=== PATIENT | male | born 1970 | race African-American/Black ===

== ENCOUNTER 2017-06-06 05:45 | Emergency (ER) | payer BC, OTHER ==
[2017-06-06] MEDS ORDERED: DEXAMETHASONE SOD PHOS 4 MG/ML VIAL IM ONE (06:09)
[2017-06-06] MEDS ORDERED: CEPHALEXIN 250 MG CAPSULE PO ONE (06:09)
--- NOTE | 2017-06-06 06:25 | ED Physician Documentation ---
General Adult - HISTORIAN Historian: patient - HPI Stated Complaint: swelling left lip and cheek Chief Complaint: General Adult Additional Information: Ate cereal, strawberries and bananas last evening and lower lip began to swell. orse this am with involvement of only left face, so came to ER. No pain involved. No toothache. No meds. No SOB. - ROS CONST: no problems - PAST HX Past History: none Allergies/Adverse Reactions: Allergies Allergy/AdvReac Type Severity Reaction Status Date / Time No Known Allergies Allergy Verified 06/06/17 06:03 Home Medications: Ambulatory Orders Medication Instructions Recorded Cephalexin [Keflex] 500 mg PO Q6 40 Days capsule 06/06/17 - SOCIAL HX Smoking History: non-smoker - FAMILY HX Family History: No - VITAL SIGNS Vital Signs: Vital Signs Temp Pulse Resp BP Pulse Ox 200/88 03/06/15 00:16 - REVIEWED ASSESSMENTS Nursing Assessment Reviewed: Yes Vitals Reviewed: Yes ED Results Lab/Radiology - Orders Orders: ED Orders Category Date Time Status Cephalexin [Keflex] Med 06/06/17 06:09 Once 500 mg PO NOW ONE Dexamethasone Sod Phosphate [Decadron] Med 06/06/17 06:09 Once 12 mg IM NOW ONE General Adult Physical Exam - PHYSICAL EXAM GENERAL APPEARANCE: mild distress EENT: eye inspection normal, ENT inspection normal (no aparent cavities, broken teeth or gingival swelling, erythema), pharynx normal (Mallampati 2), other ( Left lower lip swollen as well as left facial area adjacent to lip. The swelling is well demarcated and does not involve the pre auricular area, the tongue or the sub glossal area. There is no warmth or rash.) NECK: normal inspection RESPIRATORY: no resp distress BACK: other (erect posture) SKIN: warm/dry, normal color EXTREMITIES: normal range of motion (gait and stance), no evidence of injury NEURO: CN's nml as tested, motor nml, sensation nml, cognition normal Discharge Clincal Impression: Left facial swelling Prescriptions: Cephalexin [Keflex] 500 mg PO Q6 40 Days capsule Referrals: Kristy Scott, PRN [Primary Care Provider] - 2 Days Condition: Good Disposition: 01 HOME, SELF-CARE Decision to Admit: NO Decision Time: 06:25
[2017-06-06 06:39] VITALS: BP 170/98
== END 2017-06-06 06:26 | disposition home or self-care (01) ==
LOC: ED 05:45
DX: R22.0 Localized swelling, mass and lump, head (principal)
CPT/HCPCS: 96372; 99282; J1100

== ENCOUNTER 2018-01-14 11:19 | Outpatient (CLI) | payer BC ==
--- NOTE | 2018-01-14 13:37 | Diagnostic Imaging Report ---
BLADIMIR KILGORE [facility] [address] [address] [id number] Report Submission Date: Jan 14, 2018 12:47:43 PM CDT Patient Study Name: POLO AGUIRRE Date: Jan 14, 2018 11:26:36 AM CDT Modality Type: DX Gender: M Description: CHEST : 72 Institution: [facility] Physician: BLADIMIR KILGORE Examination: PA and lateral chest. History: Evaluate lung pickard. Findings: PA and lateral views of the chest demonstrates a normal cardiac and mediastinal silhouette. No focal infiltrate. No blunting of the costophrenic margins. Osseous structures are appropriate for age. Impression: No acute pulmonary process. Electronically signed on Jan 14, 2018 12:47:43 PM CDT by: Jaden RICHTER
--- NOTE | 2018-01-14 13:38 | Diagnostic Imaging Report ---
BLADIMIR KILGORE [facility] [address] [facility].[address] [id number] Report Submission Date: Jan 14, 2018 12:49:36 PM CDT Patient Study Name: POLO AGUIRRE Date: Jan 14, 2018 11:29:25 AM CDT Modality Type: DX Gender: M Description: SHOULDER : 72 Institution: [facility] Physician: BLADIMIR KILGORE Examination: Plain film right clavicle History: SC JOINT SWELLING AFTER HEAVY LIFTING X3 MONTHS, CXR ALSO COMPLETED (Hx) Comparison exams: None provided Findings: 2 views of the right clavicle demonstrate normal cortical margins. No evidence for fracture or dislocation. Mild degenerative spurring at the acromioclavicular joint. No soft tissue abnormality Impression: Acromioclavicular joint degenerative spurring. No acute appearing cortical abnormality. Electronically signed on Jan 14, 2018 12:49:36 PM CDT by: Jaden RICHTER
== END 2018-01-14 11:20 ==
LOC: RAD 11:19
PROVIDERS: ATTEND Family Medicine
DX: M25.511 Pain in right shoulder (principal)
CPT/HCPCS: 71046; 73000